=== PATIENT | male | born 1955 | race Caucasian/White ===

== ENCOUNTER → 2018-09-29 06:32 | Outpatient (CLI) | payer OTHER, SELFPAY ==
[2018-08-20 13:37] VITALS: BMI 35.3
--- NOTE | 2018-09-29 09:16 | STRESSREP ---
Stress Test Report Pharmacologic myocardial perfusion stress test. 62-year-old man with a history of cardiomyopathy. Medications: Furosemide, losartan, omega-3, metoprolol, apixaban. Next Resting EKG demonstrates atrial fibrillation with a rate of [address]-T wave changes are noted. 0.4 mg of regadenoson was infused per usual protocol followed by rapid intravenous saline flush injection continuous EKG monitoring was performed. The resting EKG demonstrated nonspecific ST-T wave changes. At peak infusion nonspecific ST-T wave changes were also noted. The maximum workload was 1 metabolic equivalent. Myocardial perfusion protocol. 14.7 mCi of technetium 99m sestamibi was injected at rest. 0.4 mg of regadenoson was infused per usual protocol peak infusion 44.6 mCi of technetium 99m sestamibi was injected stress images were obtained stress and rest images were reconstructed and compared in the short axis vertical and horizontal long axis. Gated images were also obtained per The resting blood pressure 132/92 with a peak blood pressure of 140/98 mmHg. Perfusion SPECT analysis: Review of the stress images demonstrate normal uptake of tracer noted in all areas of myocardium the resting images demonstrate normal uptake of tracer noted in all areas of the myocardium. No areas of reversibility are noted suggest ischemia. Gated SPECT analysis: The gated ejection fraction demonstrates globally reduced left ventricular ejection fraction estimated at approximately 41%. Conclusion: Normal pharmacologic myocardial perfusion stress test. Atrial fibrillation noted. Mild cardiomyopathy present.
== END ==
PROVIDERS: Family Provider Family Medicine; PCP Family Medicine; Referring Provider Internal Medicine Cardiovascular Disease; Visit Provider Internal Medicine Cardiovascular Disease
DX: I11.0 Hypertensive heart disease with heart failure (principal); I50.42 Chronic combined systolic (congestive) and diastolic (congestive) heart failure; I48.1 Persistent atrial fibrillation; I43 Cardiomyopathy in diseases classified elsewhere; E78.5 Hyperlipidemia, unspecified
CPT/HCPCS: 78452; 93017; A9500; A4216; J2785

== ENCOUNTER → 2018-10-01 12:11 | Outpatient (CLI) | payer OTHER, SELFPAY ==
[2018-10-01 09:45] VITALS: BMI 34.5
[2018-10-01 13:07] LABS: Anion Gap 5 (5-15); BUN 27 mg/dL (7-18); BUN/Creat Ratio 18.9 RATIO (10-20); Calcium,Total 9.3 mg/dL (8.5-10.1); Chloride 107 mmol/L (98-107); Creatinine, Serum 1.43 mg/dL (0.70-1.30); EST Glomerular Filtration Rate 53 mL/min (>60); Est Glom Filt Rate - Afr Amer 64 mL/min (>60); Glucose 153 mg/dL (74-106); Potassium 4.9 mmol/L (3.5-5.1); Sodium Level 139 mmol/L (136-145)
== END ==
PROVIDERS: Family Provider Family Medicine; PCP Family Medicine; Referring Provider Internal Medicine Cardiovascular Disease; Visit Provider Internal Medicine Cardiovascular Disease
DX: I48.1 Persistent atrial fibrillation (principal); I50.42 Chronic combined systolic (congestive) and diastolic (congestive) heart failure
CPT/HCPCS: 36415; 80048

== ENCOUNTER → 2018-10-08 11:29 | Day surgery (SDC) | payer OTHER, SELFPAY ==
[2018-10-01 09:45] VITALS: BMI 34.5
[2018-10-07 08:43] VITALS: BMI 34.5
--- NOTE | 2018-10-08 13:27 | CARDIOVERS ---
Cardioversion Cardioversion: DC cardioversion. 62-year-old man with a history of chronic persistent atrial fibrillation. Patient has been on uninterrupted anticoagulation. The patient was seen by Dr. Herzog the critical care division. Informed consent was obtained. Anterior posterior pads were then applied. The patient was administered a total of 8 mg of intravenous etomidate and aliquots. The patient was initially cardioverted with 200 J of DC biphasic cardioversion energy, 300 J of biphasic energy, and finally 300 J of biphasic DC cardioversion energy with final reversal into sinus rhythm with sinus bradycardia. Patient tolerated the procedure well. Conclusion: Successful DC cardioversion to sinus rhythm. Would recommend amiodarone 200 mg a day.
--- NOTE | 2018-10-08 13:28 | HP.PCM_ITS ---
History and Physical Date of Admission: 10/08/18 History of Present Illness Details: Pleasant 62-year-old man with no previous history other than hypertension and diabetes mellitus who presented to the hospital on 08/10/2017 with shortness of breath. This was apparently with exertion as well as with orthopnea. He had also noticed some weight gain as well as mild pedal edema. It was not clear but he felt like his heart was beating irregularly and faster at times. He was diagnosed based on his EKG is having atrial fibrillation with a rapid ventricular response rate he received intravenous Lasix was started on anticoagulation and also had an echocardiogram. The echocardiogram demonstrated moderate concentric left ventricular hypertrophy with mild global hypokinesis, with an estimated ejection fraction of 40 to 45% left atrium was mildly dilated the right atrium was dilated. There is mild mitral and tricuspid regurgitation. He has had no dizziness or diaphoresis no near syncope or syncope and no chest pain. He tells me that he has been feeling better since the adjustment of his medications he however still has some pedal edema. He underwent a pharmacologic myocardial perfusion stress test which demonstrated no evidence of ischemia and it did conclude that he had a mild cardiomyopathy with an estimated ejection fraction of 41%. He is able to participate in most activities of daily living. His physical exam demonstrates clear lung méndez irregular regular heart rate and 1+ pitting edema. Intake Vital Signs 10/01/18 Height 6 ft 1 in 10/01/18 Weight: 262 lb 10/01/18 Body Mass Index (BMI) 34.5 10/01/18 Blood Pressure 138/106 H 10/01/18 Respiratory Rate 16 10/01/18 Pulse Rate 103 H 10/01/18 Pulse Ox 98 10/01/18 Body Mass Index (BMI) 35.3 Intake Visit Reasons: 6 wk f/up (we r/s from -) Allergies No Known Allergies Allergy (Unverified 10/01/18 09:46) Medications latanoprost 0.005 % eye drops 1 drp OPHTHALMIC QPM 08/14/18 [History Confirmed 10/01/18] losartan 100 mg tablet 100 mg PO DAILY 08/14/18 [History Confirmed 10/01/18] metformin 1,000 mg tablet 1,000 mg PO BID 08/14/18 [History Confirmed 10/01/18] omega-3 fatty acids 1,000 mg capsule 2,000 mg PO TID cap 08/14/18 [History Confirmed 10/01/18] prasterone (dhea) 25 mg tablet 25 mg PO DAILY 08/14/18 [History Confirmed 10/01/18] sildenafil (antihypertensive) 20 mg tablet 20 mg PO ONCE tab 08/14/18 [History Confirmed 10/01/18] potassium citrate ER 10 mEq (1,080 mg) tablet,extended release 10 meq PO DAILY tab 08/20/18 [History Confirmed 10/01/18] metoprolol tartrate 50 mg tablet 50 mg PO BID #180 tab 08/21/18 [Rx Confirmed 10/01/18] apixaban 5 mg tablet 5 mg PO BID #180 tab 08/22/18 [Rx Confirmed 10/01/18] furosemide 40 mg tablet 40 mg PO BID #90 tab 10/01/18 [Rx Confirmed 10/01/18] PFSH Medical History Chronic combined systolic and diastolic CHF (congestive heart failure) (Chronic) Persistent atrial fibrillation (Chronic) Hyperlipidemia (Chronic) Essential (primary) hypertension (Chronic) Cardiomyopathy in diseases classified elsewhere (Chronic) Gout (Chronic) Iron deficiency anemia (Chronic) Mild renal insufficiency (Chronic) Obesity (Chronic) Type 2 diabetes mellitus (Chronic) Persistent atrial fibrillation with rapid ventricular response (Resolved 08/11/18) Family History Mother Heart disease Father Heart disease Social History (Updated 10/01/18 @ 11:58 by Cabrera Borja MD) Smoking Status: Former smoker quit date: 03/25/80 pack-years: 10 alcohol intake: current Alcohol type: beer details: 3 beers a week caffeine: Yes Type: tea Number of servings: 2 ROS Const Const: Negative for fatigue, weakness, headache(s), frequent falls, difficulty sleeping or excessive sweating Eyes Eyes: Negative for loss of peripheral vision, transient loss of vision, blurry vision, double vision or tunnel vision ENT ENT: Negative for headache(s), dizziness, Nosebleed/epistaxis or balance problems Cardio Chest Pain: No Palpitations: No Edema: Left (LLE) Muscle aches with walking: None Resp Respiratory: Negative for SOB with activity, SOB at rest, SOB orthopnea\SOB lying down, Cough or paroxysmal nocturnal dyspnea GI GI: Negative nausea, vomiting, heartburn or black,tarry stools : Negative for hematuria Musc Musc: Negative for muscle aches/ myalgia, muscle weakness, joint pain or balance problems Skin Skin: Negative non-healing lesions, rash or unusual bruising Neuro Neuro: Negative for dizziness, lightheadedness, near syncope, syncope, orthostatic symptoms, frequent falls, headache(s), weakness, blurry vision, double vision or lack of coordination Steven Hematologic/Lymphatic: Negative for easy bleeding or easy bruising Endo Endo: Negative for fatigue, excessive sweating or increased thirst/drinking Psych Psych: Negative for anxiety or depression Allergy Allergy/Immunology: Negative for hives, Negative for rash Cardiology Exam Const Appearance: cooperative, healthy appearing, no acute distress, well developed and well groomed Nutritional Appearance: average body habitus and well nourished Orientation: alert, awake and oriented x3 Head Head: normal to inspection, normocephalic and atraumatic Ears: hearing grossly normal bilaterally and external ears normal Nose: external nose normal, nares normal, nasal mucous membranes and turbinates normal, septum normal, no nasal discharge Face and Sinus: face symmetric Mouth: oral mucosae normal, tongue normal, oropharynx normal and moist mucous membranes Teeth and gingiva: dentition normal Throat: posterior oropharynx normal, tonsils normal and uvula midline Eyes General: appearance normal, both eyes and all related structures Eyelids: eyelids normal Conjunctivae: conjunctivae normal Pupils: PERRL, normal by confrontation and accommodation normal EOM: EOM intact bilaterally Neck Neck: normal visual inspection, trachea midline and no JVD JVD: +5 Carotids: normal carotid upstroke and bounding pulses Chest Chest inspection: normal inspection of the chest, symmetric chest movement and normal respiratory effort Auscultation: Bilateral: Clear to Auscultation Cardio Palpation: normal PMI Rhythm: irregular rhythm Heart sounds: S1 normal and S2 normal GI GI: normal to inspection, soft, no hepatosplenomegaly and bowel sounds present Neuro General: alert, awake, oriented x3, gait normal, moves all extremities and no focal sensory deficit Skin Skin: no rashes or lesions noted Extremities Pulses: Normal: Right Femoral Pulse, Left Femoral Pulse, Right Dorsalis Pedis Pulse, Left Dorsalis Pedis Pulse, Right Posterior Tibial Pulse, Left Posterior Tibial Pulse, Right Radial Pulse, Left Radial Pulse Lower Extremity Edema: None: Bilateral Musculoskel Musculoskeletal: No joint tenderness Psych Psychological: normal affect Assessment & Plan 1. Persistent atrial fibrillation I48.1 Plan He does have a history of chronic persistent atrial fibrillation the etiology is unclear. He has been faithful with his beta-david as well as his Eliquis, and at this time I would recommend that we consider him for DC cardioversion. Depending on the response further recommendations will be made which may include a trial of amiodarone and or ablation. He should continue his current medications up to and including the day of the procedure. Orders Orders: Basic Metabolic Profile (BMP) 1 Week 2. Essential (primary) hypertension I10 Plan He does have a history of hypertension. It appears to be borderline. I would not make any changes until he has been converted back in sinus rhythm. His echocardiographic findings have been discussed above. 3. Chronic combined systolic and diastolic CHF (congestive heart failure) I50.42 Plan He does have chronic mild systolic heart failure. He will remain on the beta- david and my recommendation will be to increase his Lasix to 40 mg twice a day. His losartan should continue at the same dose. Thank you for allowing me to participate in the care of your patient. Please don't hesitate to call if any issues arise Orders Orders: Cardioversion Today Basic Metabolic Profile (BMP) 1 Week Plan Detail Other Medications Changed: From: furosemide (Lasix) 40 mg PO DAILY 90 tabs 4RF To: furosemide (Lasix) 40 mg PO BID 90 tabs 4RF Discontinued: furosemide Discontinued Reason: Order Changed 20 mg PO QAM Thank you for allowing me to participate in the care of your patient. Please don't hesitate to call if any issues arise
--- NOTE | 2018-10-08 14:24 | PCM.OP.PRO ---
Problem List (1) Cardiomyopathy in diseases classified elsewhere Status: Chronic (2) Chronic combined systolic and diastolic CHF (congestive heart failure) Status: Chronic (3) Essential (primary) hypertension Status: Chronic (4) Hyperlipidemia Status: Chronic (5) Persistent atrial fibrillation Status: Chronic Procedure Report Date of Procedure: 10/08/18 - Conscious sedation CONSCIOUS SEDATION REPORT BRIEF HISTORY OF PRESENT ILLNESS: The patient is a 62-year-old male who presented to [facility] for an elective outpatient cardioversion due to underlying atrial fibrillation. The patient reports no PO intake since midnight. The patient does not have a history of obstructive sleep apnea, but routinely uses nasal strips to help with snoring. The patient reports a history of smoking, but no formal diagnosis of COPD. The patient denies any recent constitutional symptoms such as fevers, chills, nausea or vomiting. The patient denies previous anesthetic complications. Patient does report that he took his Eliquis prior to the procedure. Patient also reports using sildenafil last evening at 8:00. Patient's last known ejection fraction is 45% PHYSICAL EXAMINATION: VITAL SIGNS: Reviewed and were acceptable. GENERAL: The patient is a male, in no apparent distress, speaking in full sentences. HEENT: Normocephalic, atraumatic. Mucous membranes are moist and pink. Good mouth opening noted. Trachea is midline. Good neck mobility. MP III CHEST: S1, S2 irregularly irregular. No murmurs, rubs or gallops were noted. LUNGS: Clear to auscultation bilaterally without appreciable wheezes, rales or rhonchi. ABDOMEN: Soft, nontender, nondistended. Positive bowel sounds. EXTREMITIES: There is no clubbing, cyanosis or edema. ASA Class: II DESCRIPTION OF PROCEDURE: After confirmation of informed consent, the patient's anesthesia plan was reviewed in detail. Etomidate was chosen. Risks and benefits were reviewed and the patient agreed to proceed. At 1:04 PM, the patient was given 4 mg of etomidate. The patient required a total of 8 mg of etomidate throughout the procedure to achieve appropriate sedation. The patient achieved an appropriate level of sedation and received 3 attempt s synchronized cardioversion, at 200 J, 300 J and [address] Borja at the bedside. This was successful in achieving normal sinus rhythm. The patient was monitored until 1:13 PM, at which time the patient reached their baseline mental status and function. The patient tolerated the procedure well. COMPLICATIONS: None ESTIMATED BLOOD LOSS: None RECOMMENDATIONS: Okay to recover in usual fashion. Code Visit 9xxxx: Other Procedure See Report - 25297 -9 minutes conscious sedation
== END ==
PROVIDERS: Family Provider Family Medicine; PCP Family Medicine; Referring Provider Internal Medicine Cardiovascular Disease; Visit Provider Internal Medicine Cardiovascular Disease
DX: I48.1 Persistent atrial fibrillation (principal); I11.0 Hypertensive heart disease with heart failure; I50.42 Chronic combined systolic (congestive) and diastolic (congestive) heart failure; E78.5 Hyperlipidemia, unspecified; D50.9 Iron deficiency anemia, unspecified; E11.9 Type 2 diabetes mellitus without complications; E66.9 Obesity, unspecified; Z68.34 Body mass index [BMI] 34.0-34.9, adult; Z87.891 Personal history of nicotine dependence; Z79.02 Long term (current) use of antithrombotics/antiplatelets; Z79.82 Long term (current) use of aspirin; Z79.84 Long term (current) use of oral hypoglycemic drugs; Z79.899 Other long term (current) drug therapy
CPT/HCPCS: 92960; 93005; J7040

== ENCOUNTER → 2019-09-14 09:45 | Outpatient (CLI) | payer OTHER, SELFPAY ==
[2019-03-24 08:29] VITALS: BMI 35.6
--- NOTE | 2019-09-14 09:47 | ECHOD_ITS ---
Reason For Study: AFIB Procedure This was a 2D Doppler, Color Flow transthoracic echocardiogram. Exam performed in department. Left Ventricle Normal LV size. Left ventricular systolic function is normal. The estimated ejection fraction is 55 %. Stage 1 diastolic dysfunction. No regional wall motion abnormalities noted. Right Ventricle Normal RV size. Normal systolic function. Atria The left atrium is mildly enlarged. Normal right atrium. Mitral Valve Normal mitral valve. Tricuspid Valve Normal tricuspid valve. Mild tricuspid valve insufficiency. Pulmonary artery systolic pressure is 25 mmHg. Aortic Valve The aortic valve is not well visualized. Pulmonic Valve The pulmonic valve is not well visualized. Great Vessels Normal aortic root. The pulmonary artery is normal size. Normal inferior vena cava. Pericardium/Pleural No pericardial effusion. MMode/2D Measurements & Calculations LVIDd: 5.5 cm IVSd: 1.5 cm Ao root diam: 3.7 cm LVIDs: 3.4 cm LVPWd: 1.4 cm RVDd: 3.4 cm FS: 38.9 % LAV(MOD-bp): 67.2 ml LA A4 area: 21.2 cm2 LA dimension(2D): 4.8 cm LAV(MOD-bp) Indexed: 27.9 ml/m2 LAV(MOD-sp2): 70.0 ml LAV(MOD-sp4): 64.6 ml RA A4 area: 18.2 cm2 Time Measurements MV dec time: 0.20 sec Doppler Measurements & Calculations MV E max reese: 74.1 cm/sec Lat Peak E' Reese: 7.8 cm/sec Med Peak E' Reese: 7.0 cm/sec MV A max reese: 83.9 cm/sec E/E' lat: 9.5 E/E' med: 10.6 MV E/A: 0.88 Ao V2 max: 123.4 cm/sec LV V1 max: 119.4 cm/sec PA V2 max: 86.7 cm/sec Ao max P.1 mmHg LV V1 max P.7 mmHg TR max reese: 236.0 cm/sec TR max P.3 mmHg Interpretation Summary Normal LV size. Left ventricular systolic function is normal. The estimated ejection fraction is 55 %. Stage 1 diastolic dysfunction. Ordering Physician: Cabrera Borja Referring Physician: Wellington Chris Performed By: Joelle Farrell, MAYE, RVT
== END ==
PROVIDERS: PCP Family Medicine; Referring Provider Internal Medicine Cardiovascular Disease; Visit Provider Internal Medicine Cardiovascular Disease
DX: I48.19 Other persistent atrial fibrillation (principal); I43 Cardiomyopathy in diseases classified elsewhere; I10 Essential (primary) hypertension
CPT/HCPCS: 93306

== ENCOUNTER → 2019-12-01 09:52 | Outpatient (CLI) | payer MEDICARE, OTHER, SELFPAY ==
[2019-09-18 10:06] VITALS: BMI 34.7
== END ==
PROVIDERS: PCP Family Medicine; Referring Provider Internal Medicine Cardiovascular Disease; Visit Provider Internal Medicine Cardiovascular Disease
DX: I48.19 Other persistent atrial fibrillation (principal); I48.92 Unspecified atrial flutter; I11.0 Hypertensive heart disease with heart failure; I50.42 Chronic combined systolic (congestive) and diastolic (congestive) heart failure; I43 Cardiomyopathy in diseases classified elsewhere; E78.5 Hyperlipidemia, unspecified
CPT/HCPCS: 93225; 93226

== ENCOUNTER → 2020-03-30 09:45 | Outpatient (CLI) | payer MEDICARE, OTHER, SELFPAY ==
[2019-09-18 10:06] VITALS: BMI 34.7
--- NOTE | 2020-03-30 09:55 | RAD_ITS ---
STUDY: X-RAY CHEST REASON FOR EXAM: Male, 64 years old. PRE CXR FOR CARDIOVERSION TECHNIQUE: PA and lateral views of the chest. COMPARISON: None. FINDINGS: The lungs are clear and expanded. There is no demonstrated pleural abnormality. Normal size heart. Normal mediastinum and nilsa. Normal visualized pulmonary arteries. Normal visualized aortic arch and descending thoracic aorta. Normal visualized thoracic spine. Normal visualized ribs, clavicles, and shoulders. There is no demonstrated abnormality of the visualized soft tissue structures of the upper abdomen. RAD/Chest PA and Lateral IMPRESSION: Normal x-ray examination of the chest. Electronically Signed: Ernesto Wilson MD at 17:20 EST Tel , Service support ,
[2020-03-30 10:55] LABS: Anion Gap 5 (5-15); BUN 26 mg/dL (7-18); BUN/Creat Ratio 15.7 RATIO (10-20); Calcium,Total 9.1 mg/dL (8.5-10.1); Chloride 105 mmol/L (98-107); Creatinine, Serum 1.66 mg/dL (0.70-1.30); EST Glomerular Filtration Rate 44 mL/min (>60); Est Glom Filt Rate - Afr Amer 54 mL/min (>60); Glucose 319 mg/dL (74-106); Potassium 4.5 mmol/L (3.5-5.1); Sodium Level 136 mmol/L (136-145)
== END ==
PROVIDERS: PCP Family Medicine; Referring Provider Internal Medicine Cardiovascular Disease; Visit Provider Internal Medicine Cardiovascular Disease
DX: I48.19 Other persistent atrial fibrillation (principal)
CPT/HCPCS: 36415; 71046; 80048

== ENCOUNTER 2020-04-25 10:27 | Day surgery (SDC) | payer MEDICARE, OTHER, SELFPAY ==
[2019-09-18 10:06] VITALS: BMI 34.7
[2020-04-22 11:43] VITALS: BMI 34.7
--- NOTE | 2020-04-25 10:41 | PCM.HP.BLA ---
History and Physical Date of Admission: 04/25/20 HPI This is a 64-year-old gentleman that presents here a an outpatient cardioversion. He has a history of atrial fibrillation with ablation in January 2019 and a cardioversion on 10/08/2018, cardiomyopathy which has resolved since his ablation, hypertension, and hyperlipidemia. He denies chest, arm, jaw, or neck discomfort. His exercise tolerance is stable. He denies symptoms of CHF, palpitations, lightheadedness, dizziness, near syncope, or syncopal episodes. He denies edema or claudication issues. He denies orthopnea, PND, fever, chills, blood in urine, blood in stool, myalgia, or unexplainable fatigue. Patient underwent 48-hour Holter monitor in November 2019 that was negative for atrial fibrillation. He contact our office in March 2020 stating that he had returned into atrial fibrillation. His EKG showed atrial fibrillation at a rate 131 bpm. Diltiazem therapy was added to his regimen as well as his Coreg was increased to 25 mg p.o. twice daily. He was scheduled for a cardioversion. Intake Vital Signs: See EMR Intake [facility] Required: No Accompanied by: None Is patient in pain?: No Allergies amiodarone Adverse Reaction (Verified 09/18/19 11:25) nausea/ weakness Medications See EMR [facility] Social History (Updated 09/20/19 @ 10:32 by DANITZA Metz) Smoking Status: Former smoker quit date: 03/25/80 pack-years: 10 alcohol intake: current Alcohol type: beer details: 3 beers a week caffeine: Yes Type: tea Number of servings: 2 Assessment & Plan 1. PAF (paroxysmal atrial fibrillation) I48.0 Plan Patient's twelve-lead ECG on 03/30/2020 showed atrial fibrillation at a rate 131 bpm. His medication was adjusted. He was restarted on factor Xa inhibitor. He will proceed with cardioversion today. Based on results and EKG follow-up, his rate limiting medications will be adjusted as indicated. He will continue with factor Xa inhibitor for CVA protection. 2. Essential hypertension I10 Plan Blood pressure is well controlled on current medications, we do not recommend any changes at this time. 3. Cardiomyopathy in diseases classified elsewhere I43 Plan His EF has improved since his ablation. He will continue current medical therapy which includes carvedilol, losartan, and Lasix. Previously his Lasix has been down titrated on account of doing symptomatically well. We will continue to adjust medications as indicated. We will continue to monitor. Supplemental Info Supplemental Information Stress test in September 2018 demonstrated:Normal pharmacologic myocardial perfusion stress test. Atrial fibrillation noted. Mild cardiomyopathy present. Echocardiogram in July 2018 at an outside hospital demonstrated moderate concentric left ventricular hypertrophy with mild global hypokinesis, with an estimated ejection fraction of 40 to 45% left atrium was mildly dilated the right atrium was dilated. There is mild mitral and tricuspid regurgitation. Echocardiogram in 2019 demonstrated Normal LV size. Left ventricular systolic function is normal. The estimated ejection fraction is 55 %. Stage 1 diastolic dysfunction. Procedure Criteria Procedure Type: Elective COVID Risk Discussion: The surgeon/proceduralist and patient have discussed in detail the risk of exposure to and/or potential harm posed by the COVID-19 virus with having a surgery/procedure at this time versus the risk of delaying the surgery/procedure. It is not possible to know either the risk of delaying the surgery or procedure or chance of getting an infection with perfect accuracy, but a joint decision was made between the patient and the surgeon/proceduralist to proceed at this time with the scheduled surgery/procedure as indicated on the consent form.
--- NOTE | 2020-04-25 12:19 | CARDIOVERS_ITS ---
Cardioversion Cardioversion: DC cardioversion. 64-year-old man with a history of cardiomyopathy status post A. fib ablation and now back in atrial fibrillation. After informed consent was obtained the patient was brought to the cardiac catheterization lab in the postabsorptive nonsedated state. The patient was seen by Dr. Nelson of the critical care division. Informed consent was obtained. Anterior posterior pads were applied. The patient had been taking anticoagulation uninterrupted for at least 3 weeks. The patient was then admini stered 60 mg of intravenous propofol. 200 J of synchronized DC cardioversion energy were applied with prompt reversal to sinus rhythm. Patient tolerated the procedure well. Conclusion: Successful DC cardioversion from atrial fibrillation to sinus rhythm. Discontinue diltiazem. Continue carvedilol. Follow-up per office protocol.
--- NOTE | 2020-04-25 13:54 | PRO.PCM_ITS ---
Problem List (1) Cardiomyopathy in diseases classified elsewhere Status: Chronic (2) Chronic combined systolic and diastolic CHF (congestive heart failure) Status: Chronic (3) Essential (primary) hypertension Status: Chronic (4) Hyperlipidemia Status: Chronic (5) Persistent atrial fibrillation Status: Chronic Comment: Cryo catheter ablation and DCCV 02/16/2019 Procedure Report Date of Procedure: 04/25/20 - Conscious sedation CONSCIOUS SEDATION REPORT BRIEF HISTORY OF PRESENT ILLNESS: The patient is a 64-year-old male who presented to [facility] for an elective outpatient cardioversion due to underlying atrial fibrillation. The patient reports no PO intake since midnight. The patient does not have a history of obstructive sleep apnea. The patient reports no history of smoking and COPD. The patient denies any recent constitutional symptoms such as fevers, chills, nausea or vomiting. The patient denies previous anesthetic complications. Patient's last ejection fraction was 55%. Patient did take Eliquis on the day of the procedure. PHYSICAL EXAMINATION: VITAL SIGNS: Reviewed and were acceptable. GENERAL: The patient is a male, in no apparent distress, speaking in full sentences. HEENT: Normocephalic, atraumatic. Mucous membranes are moist and pink. Good mouth opening noted. Trachea is midline. Good neck mobility. MP III CHEST: S1, S2 irregularly irregular. No murmurs, rubs or gallops were noted. LUNGS: Clear to auscultation bilaterally without appreciable wheezes, rales or rhonchi. ABDOMEN: Soft, nontender, nondistended. Positive bowel sounds. EXTREMITIES: There is no clubbing, cyanosis or edema. ASA Class: II DESCRIPTION OF PROCEDURE: After confirmation of informed consent, the patient's anesthesia plan was reviewed in detail. Propofol was chosen. Risks and benefits were reviewed and the patient agreed to proceed. At 12:12 PM, the patient was given 40 mg of propofol. The patient required a total of 60 mg of propofol throughout the procedure to achieve appropriate sedation. The patient achieved an appropriate level of sedation and received 1 attempt synchronized cardioversion, at [address] Borja at the bedside. This was successful in achieving normal sinus rhythm. The patient was monitored until 12:24 PM, at which time the patient reached their baseline mental status and function. The patient tolerated the procedure well. COMPLICATIONS: None ESTIMATED BLOOD LOSS: None RECOMMENDATIONS: Okay to recover in usual fashion. 9xxxx: Other Procedure See Report - [id number] -12 minutes of conscious sedation
== END 2020-04-25 13:20 | disposition home or self-care (01) ==
LOC: CLSP 10:31
PROVIDERS: PCP Family Medicine; Referring Provider Internal Medicine Cardiovascular Disease; Visit Provider Internal Medicine Cardiovascular Disease
DX: I48.0 Paroxysmal atrial fibrillation (principal); I43 Cardiomyopathy in diseases classified elsewhere; I11.0 Hypertensive heart disease with heart failure; I50.42 Chronic combined systolic (congestive) and diastolic (congestive) heart failure; E78.5 Hyperlipidemia, unspecified; Z87.891 Personal history of nicotine dependence
CPT/HCPCS: 92960; 93005; J7040

== ENCOUNTER → 2020-06-13 10:42 | Outpatient (CLI) | payer MEDICARE, OTHER, SELFPAY ==
[2020-05-17 13:02] VITALS: BMI 35.7
[2020-06-13 12:44] LABS: Anion Gap 6 (5-15); BUN 26 mg/dL (7-18); BUN/Creat Ratio 14.5 RATIO (10-20); Calcium,Total 9.1 mg/dL (8.5-10.1); Chloride 101 mmol/L (98-107); Creatinine, Serum 1.79 mg/dL (0.70-1.30); EST Glomerular Filtration Rate 41 mL/min (>60); Est Glom Filt Rate - Afr Amer 49 mL/min (>60); Glucose 459 mg/dL (74-106); Sodium Level 135 mmol/L (136-145)
== END ==
PROVIDERS: Referring Provider Internal Medicine Cardiovascular Disease; Visit Provider Internal Medicine Cardiovascular Disease
DX: I48.19 Other persistent atrial fibrillation (principal); I11.0 Hypertensive heart disease with heart failure; I50.32 Chronic diastolic (congestive) heart failure
CPT/HCPCS: 36415; 80048

== ENCOUNTER 2020-06-24 10:55 | Day surgery (SDC) | payer MEDICARE, OTHER, SELFPAY ==
[2020-05-17 13:02] VITALS: BMI 35.7
[2020-06-24 07:49] VITALS: BMI 35.7
--- NOTE | 2020-06-24 11:24 | HP.PCM_ITS ---
History and Physical Date of Admission: 06/24/20 This is a 64-year-old gentleman that presents here today for a cardioversion. He has a history of atrial fibrillation with recent ablation, cardiomyopathy which has resolved since his ablation hypertension and hyperlipidemia. He underwent a cardioversion April 25, 2020. This was successful. He then called our office a few weeks ago and was felt to have returned to atrial fibrillation. This was confirmed by EKG. Allergies amiodarone Adverse Reaction (Verified 05/17/20 13:03) nausea/ weakness [facility] [place] Medical History Persistent atrial fibrillation (Chronic) Chronic diastolic (congestive) heart failure (Chronic) Essential (primary) hypertension (Chronic) Hyperlipidemia (Chronic) Gout (Chronic) Iron deficiency anemia (Chronic) Mild renal insufficiency (Chronic) Obesity (Chronic) Type 2 diabetes mellitus (Chronic) Cardiomyopathy in diseases classified elsewhere (Resolved) Persistent atrial fibrillation with rapid ventricular response (Resolved 08/11/18) Chronic combined systolic and diastolic CHF (congestive heart failure) (Inactive) Surgical History History of cardioversion (Resolved 04/25/20) History of radiofrequency ablation procedure for cardiac arrhythmia (Resolved 02/16/19) Family History Mother Heart disease Father Heart disease Social History Smoking Status: Former smoker quit date: 03/25/80 pack-years: 10 alcohol intake: current Alcohol type: beer details: 3 beers a week caffeine: Yes Type: tea Number of servings: 2 ROS Const Const: Negative for fatigue, weakness, headache(s), frequent falls, difficulty sleeping or excessive sweating Eyes Eyes: Negative for loss of peripheral vision, transient loss of vision, blurry vision, double vision or tunnel vision ENT ENT: Negative for headache(s), dizziness, Nosebleed/epistaxis or balance problems Cardio Chest Pain: No Palpitations: No Edema: Left (ankle edema) Muscle aches with walking: None Resp Respiratory: Negative for SOB with activity, SOB at rest, SOB orthopnea\SOB lying down, Cough or paroxysmal nocturnal dyspnea GI GI: Negative nausea, vomiting, heartburn or black,tarry stools : Negative for hematuria Musc Musc: Negative for muscle aches/ myalgia, muscle weakness, joint pain or balance problems Skin Skin: Negative non-healing lesions, rash or unusual bruising Neuro Neuro: Negative for dizziness, lightheadedness, near syncope, syncope, orthostatic symptoms, frequent falls, headache(s), weakness, blurry vision, double vision or lack of coordination Steven Hematologic/Lymphatic: Negative for easy bleeding or easy bruising Endo Endo: Negative for fatigue, excessive sweating or increased thirst/drinking Psych Psych: Negative for anxiety or depression Allergy Allergy/Immunology: Negative for hives, Negative for rash Cardiology Exam Const Appearance: cooperative, healthy appearing, no acute distress, well developed and well groomed Nutritional Appearance: average body habitus and well nourished Orientation: alert, awake and oriented x3 Head Head: normal to inspection, normocephalic and atraumatic Ears: hearing grossly normal bilaterally and external ears normal Nose: external nose normal, nares normal, nasal mucous membranes and turbinates normal, septum normal, no nasal discharge Face and Sinus: face symmetric Mouth: oral mucosae normal, tongue normal, oropharynx normal and moist mucous membranes Teeth and gingiva: dentition normal Throat: posterior oropharynx normal, tonsils normal and uvula midline Eyes General: appearance normal, both eyes and all related structures Eyelids: eyelids normal Conjunctivae: conjunctivae normal Pupils: PERRL, normal by confrontation and accommodation normal EOM: EOM intact bilaterally Neck Neck: normal visual inspection, trachea midline and no JVD JVD: +5 Carotids: normal carotid upstroke and bounding pulses Chest Chest inspection: normal inspection of the chest, symmetric chest movement and normal respiratory effort Auscultation: Bilateral: Clear to Auscultation Cardio Palpation: normal PMI Rate: regular rate Rhythm: regular rhythm Heart sounds: S1 normal, S2 normal and normal, physiologic split S2; negative rub, gallop or murmur GI GI: normal to inspection, soft, no hepatosplenomegaly and bowel sounds present Neuro General: alert, awake, oriented x3, gait normal, moves all extremities and no focal sensory deficit Skin Skin: no rashes or lesions noted Extremities Pulses: Normal: Right Femoral Pulse, Left Femoral Pulse, Right Dorsalis Pedis Pulse, Left Dorsalis Pedis Pulse, Right Posterior Tibial Pulse, Left Posterior Tibial Pulse, Right Radial Pulse, Left Radial Pulse Lower Extremity Edema: None: Bilateral Musculoskel Musculoskeletal: No joint tenderness Psych Psychological: normal affect Assessment & Plan Problems 1. Persistent atrial fibrillation I48.19 Cryo catheter ablation 02/16/2019 and DCCV 10/08/2018, 04/25/2020 2. Chronic diastolic (congestive) heart failure I50.32 3. Essential hypertension I10 4. Hyperlipidemia E78.5 Plan - Siomara BOSCH, PA Patient is here today for a cardioversion. Follow-up will be scheduled acc ordingly Procedure Criteria Procedure Type: Elective COVID Risk Discussion: The surgeon/proceduralist and patient have discussed in detail the risk of exposure to and/or potential harm posed by the COVID-19 virus with having a surgery/procedure at this time versus the risk of delaying the surgery/procedure. It is not possible to know either the risk of delaying the surgery or procedure or chance of getting an infection with perfect accuracy, but a joint decision was made between the patient and the surgeon/proceduralist to proceed at this time with the scheduled surgery/procedure as indicated on the consent form.
--- NOTE | 2020-06-24 12:41 | CARDIOVERS ---
Cardioversion Cardioversion: DC cardioversion. 64-year-old male with a history of persistent atrial fibrillation. Patient is status post atrial fibrillation ablation and has reverted back to sinus rhythm. The patient was brought to cardiac catheterization lab in the postabsorptive nonsedated state. Patient was seen by Dr. Nelson of the critical care division. Informed consent was obtained. Anterior posterior pads were applied. The patient was then administered 50 mg of intravenous propofol. 200 J of synchronized biphasic cardioversion energy were applied with reversal to sinus rhythm which did not persist and went back into atrial fibrillation. The patient was then administered an additional 20 mg of intravenous propofol and a repeat cardioversion with 200 J of synchronized biphasic energy were applied with no change in rhythm. The final 30 mg of intravenous propofol was given and then 300 J of synchronized biphasic energy were applied. The patient briefly went into sinus rhythm and then went back into atrial fibrillation. Conclusion: Unsuccessful DC cardioversion to sinus rhythm. Atrial fibrillation persist. Would consider flecainide 100 mg twice a day in addition to his anticoagulation and beta-david. Would reconsider DC cardioversion in 6 weeks and also strongly consider referral for repeat ablation.
--- NOTE | 2020-06-24 13:59 | PRO.PCM_ITS ---
Problem List (1) Chronic diastolic (congestive) heart failure Status: Chronic (2) Essential (primary) hypertension Status: Chronic (3) Hyperlipidemia Status: Chronic (4) Persistent atrial fibrillation Status: Chronic Comment: Cryo catheter ablation 02/16/2019 and DCCV 10/08/2018, 04/25/2020 Procedure Report Date of Procedure: 06/24/20 - Conscious sedation CONSCIOUS SEDATION REPORT BRIEF HISTORY OF PRESENT ILLNESS: The patient is a 64-year-old male who presented to [facility] for an elective outpatient cardioversion due to underlying atrial fibrillation. The patient reports no PO intake since midnight. The patient does have a history of obstructive sleep apnea, recently diagnosed. The patient reports a history of smoking, but denies COPD. The patient denies any recent constitutional symptoms such as fevers, chills, nausea or vomiting. The patient denies previous anesthetic complications. Patient's last known ejection fraction was 55%. Patient did have a previous cardioversion that was successful and required 60 mg of propofol PHYSICAL EXAMINATION: VITAL SIGNS: Reviewed and were acceptable. GENERAL: The patient is a male, in no apparent distress, speaking in full sentences. HEENT: Normocephalic, atraumatic. Mucous membranes are moist and pink. Good mouth opening noted. Trachea is midline. Good neck mobility. MP IV CHEST: S1, S2 irregularly irregular. No murmurs, rubs or gallops were noted. LUNGS: Clear to auscultation bilaterally without appreciable wheezes, rales or rhonchi. ABDOMEN: Soft, nontender, nondistended. Positive bowel sounds. EXTREMITIES: There is no clubbing, cyanosis or edema. ASA Class: II DESCRIPTION OF PROCEDURE: After confirmation of informed consent, the patient's anesthesia plan was reviewed in detail. Propofol was chosen. Risks and benefits were reviewed and the patient agreed to proceed. At 12:28 PM, the patient was given 40 mg of propofol. The patient required a total of 100 mg of propofol throughout the procedure to achieve appropriate sedation. The patient achieved an appropriate level of sedation and received 3 attempt s synchronized cardioversion, at 200 J, 200 J and [address] Borja at the bedside. This was unsuccessful in achieving normal sinus rhythm. The patient was monitored until 12:42 PM, at which time the patient reached their baseline mental status and function. The patient tolerated the procedure well. COMPLICATIONS: None ESTIMATED BLOOD LOSS: None RECOMMENDATIONS: Ashwin to recover in usual fashion. [id number]: Other Procedure See Report - [id number]
== END 2020-06-24 13:45 | disposition home or self-care (01) ==
LOC: CLSP 10:56
PROVIDERS: Referring Provider Internal Medicine Cardiovascular Disease; Visit Provider Internal Medicine Cardiovascular Disease
DX: I48.19 Other persistent atrial fibrillation (principal); I13.0 Hypertensive heart and chronic kidney disease with heart failure and stage 1 through stage 4 chronic kidney disease, or unspecified chronic kidney disease; I50.32 Chronic diastolic (congestive) heart failure; E11.22 Type 2 diabetes mellitus with diabetic chronic kidney disease; N18.9 Chronic kidney disease, unspecified; E78.5 Hyperlipidemia, unspecified; E66.9 Obesity, unspecified; Z68.35 Body mass index [BMI] 35.0-35.9, adult; Z79.84 Long term (current) use of oral hypoglycemic drugs; Z79.899 Other long term (current) drug therapy; Z87.891 Personal history of nicotine dependence
CPT/HCPCS: 92960; 93005; J7040